=== PATIENT | male | born 1970 | race American Indian/Alaskan Native ===

== ENCOUNTER 2019-05-04 11:35 | Emergency (ER) | payer SELFPAY ==
--- NOTE | 2019-05-04 13:34 | Emergency Department Report ---
ED General Adult HPI - General Chief complaint: Medical Clearance Stated complaint: DIZZY Time Seen by Provider: 05/04/19 13:17 Source: patient Mode of arrival: Ambulatory Limitations: No Limitations - History of Present Illness Initial comments: She presents to the emergency department for medical clearance to return to work. Patient states that on Saturday he had a 5 minute episode of dizziness that completely resolved but his job told him to leave and go see a physician. Patient states since that time he has not had any dizziness, headache, facial droop, slurred speech, or any focal weakness. His pain, short of breath, or headache. -: days(s) (3) Severity scale (0 -10): 0 Consistency: now resolved Improves with: none Worsens with: none Associated Symptoms: denies other symptoms Treatments Prior to Arrival: none - Related Data Previous Rx's Medication Instructions Recorded Last Taken Type Cyclobenzaprine HCl [Flexeril 5 MG 5 mg PO TID #30 tab 04/13/15 Unknown Rx TAB] Ibuprofen [Motrin] 800 mg PO Q8HR PRN #30 tablet 04/13/15 Unknown Rx traMADoL [Ultram 50 MG tab] 50 mg PO Q6HR PRN #20 tablet 04/13/15 Unknown Rx Allergies Allergy/AdvReac Type Severity Reaction Status Date / Time No Known Allergies Allergy Verified 04/13/15 10:29 ED Review of Systems ROS: Stated complaint: DIZZY Other details as noted in HPI Comment: All other systems reviewed and negative Constitutional: denies: chills, fever Eyes: denies: eye pain, eye discharge, vision change ENT: denies: ear pain, throat pain Respiratory: denies: cough, shortness of breath, wheezing Cardiovascular: denies: chest pain, palpitations Endocrine: no symptoms reported Gastrointestinal: denies: abdominal pain, nausea, diarrhea Genitourinary: denies: urgency, dysuria Musculoskeletal: denies: back pain, joint swelling, arthralgia Skin: denies: rash, lesions Neurological: denies: headache, weakness, paresthesias Psychiatric: denies: anxiety, depression Hematological/Lymphatic: denies: easy bleeding, easy bruising ED Past Medical Hx - Past Medical History Previous Medical History?: No - Surgical History Past Surgical History?: No - Social History Smoking Status: Current Every Day Smoker Substance Use Type: Alcohol - Medications Home Medications: Home Medications Medication Instructions Recorded Confirmed Last Taken Type Cyclobenzaprine HCl [Flexeril 5 MG 5 mg PO TID #30 tab 04/13/15 Unknown Rx TAB] Ibuprofen [Motrin] 800 mg PO Q8HR PRN #30 tablet 04/13/15 Unknown Rx traMADoL [Ultram 50 MG tab] 50 mg PO Q6HR PRN #20 tablet 04/13/15 Unknown Rx ED Physical Exam - General Limitations: No Limitations General appearance: alert, in no apparent distress - Head Head exam: Present: atraumatic, normocephalic - Eye Eye exam: Present: normal appearance, PERRL, EOMI - ENT ENT exam: Present: mucous membranes moist - Neck Neck exam: Present: normal inspection - Respiratory Respiratory exam: Present: normal lung sounds bilaterally. Absent: respiratory distress - Cardiovascular Cardiovascular Exam: Present: regular rate, normal rhythm. Absent: systolic murmur, diastolic murmur, rubs, gallop - GI/Abdominal GI/Abdominal exam: Present: soft, normal bowel sounds. Absent: distended, tenderness - Rectal Rectal exam: Present: deferred - Extremities Exam Extremities exam: Present: normal inspection - Back Exam Back exam: Present: normal inspection - Neurological Exam Neurological exam: Present: alert, oriented X3, CN II-XII intact, normal gait, reflexes normal, other (finger-nose, [id number], rapid hand movements all intact. There is no ataxia on gait). Absent: motor sensory deficit - Psychiatric Psychiatric exam: Present: normal affect, normal mood - Skin Skin exam: Present: warm, dry, intact, normal color. Absent: rash Critical care attestation.: If time is entered above; I have spent that time in minutes in the direct care of this critically ill patient, excluding procedure time. ED Disposition Clinical Impression: Dizziness Disposition: DC-01 TO HOME OR SELFCARE Is pt being admited?: No Does the pt Need Aspirin: No Condition: Stable Instructions: Dizziness (ED) Additional Instructions: Return if worse Referrals: HANY CUETO MD [Staff Physician] - 3-5 Days Forms: Work/School Release Form(ED) Time of Disposition: 13:34
[2019-05-04 14:10] VITALS: BP 139/53
== END 2019-05-04 14:16 | disposition home or self-care (01) ==
LOC: ED 11:35
DX: R42 Dizziness and giddiness (principal); R06.02 Shortness of breath; R51 Headache; F17.200 Nicotine dependence, unspecified, uncomplicated; Z79.1 Long term (current) use of non-steroidal anti-inflammatories (NSAID); Z79.899 Other long term (current) drug therapy
CPT/HCPCS: 99282

== ENCOUNTER 2021-06-05 16:34 | Emergency (ER) | payer OTHER ==
[2021-06-05 20:21] VITALS: BP 98/59
--- NOTE | 2021-06-06 01:47 | XRay Report ---
. Bilateral hands-3 views each INDICATION: crush injury near 1st and 2nd phalnage. COMPARISON: None available. IMPRESSION: No acute osseous abnormality. Normal alignment. No significant DJD. Soft tissues are u nremarkable. Signer Name: Jonel Willson MD Signed: 06/06/2021 1:43 AM Workstation Name: [id number]
== END 2021-06-06 04:44 | disposition home or self-care (01) ==
LOC: ED 16:34
DX: S69.92XA Unspecified injury of left wrist, hand and finger(s), initial encounter (principal); S69.91XA Unspecified injury of right wrist, hand and finger(s), initial encounter; X58.XXXA Exposure to other specified factors, initial encounter; Y93.89 Activity, other specified; Y92.89 Other specified places as the place of occurrence of the external cause; Y99.8 Other external cause status
CPT/HCPCS: 99283